=== PATIENT | female | born 1990 | race Caucasian/White ===

== ENCOUNTER 2016-06-07 13:10 | Emergency (ER) | payer OTHER, MEDICAID ==
[~2016-06-07] VITALS: Ht 170.2 cm; Wt 64.0 kg
[~2016-06-07 13:10] MED LIST: ALBU6.7H INH; BENZ100 PO; CIPR500T4 PO
[2016-06-07 13:14] VITALS: BP 121/87; PULSE 96; RESP 16; TEMP 97.7; O2SAT 96
[2016-06-07] MEDS ORDERED: SODIUM CHLOR 0.9% 1000 ML INJ 1,000 ML IV SCH (17:19)
--- NOTE | 2016-06-07 17:20 | PD ---
HPI Chief Complaint: Abdominal Pain Time Seen by Provider: 17:20 Travel History International Travel<30 days: No Contact w/Intl Traveler<30days: No Traveled to known affect area: No History of Present Illness HPI 26-year-old female presents to the emergency department for evaluation of epigastric abdominal pain for 2 days. Patient states that she has had intermittent cramping epigastric abdominal pain with occasional sharp shooting pain. States that she has had some intermittent nausea as well. States that she has had 2 episodes of nonbloody diarrhea. Denies any fever, chills, vomiting, chest pain, shortness of breath, cough or cold symptoms, dysuria, burning with urination, hematuria. States that she delivered her baby vaginally 05/31/16, has still had some intermittent spotting since the delivery. Denies any pelvic or vaginal pain. Prior abdominal surgeries include left fallopian tube removal secondary to ectopic. No other complaints. PFSH Past Medical History Cerebrovascular Accident: No Diabetes: No Diminished Hearing: No Musculoskeletal: Yes (SCOLIOSIS) Myocardial Infarction: No ?: Not : 3 Miscarriage: 2 Dilation and Curettage (D&C): Yes Past Surgical History Pacemaker: No Tonsillectomy: Yes Social History Alcohol Use: Yes Tobacco Use: Yes (1/2 ppd) Substance Use: No Allergies-Medications (Allergen,Severity, Reaction): Coded Allergies: No Known Allergies (Unverified , 12/25/13) Reported Meds & Prescriptions Reported Meds & Active Scripts Active Proventil Hfa (Albuterol Sulfate) 6.7 Gm Aero 2 Puff INH Q4 * SHAKE WELL BEFORE USE * Tessalon Perles (Benzonatate) 100 Mg Cap 100 Mg PO TID Cipro (Ciprofloxacin HCl) 500 Mg Tab 500 Mg PO BID 10 Days Review of Systems Except as stated in HPI: all other systems reviewed are Neg Physical Exam Narrative GENERAL: Well-nourished and well-developed pleasant patient in no acute distress who is nontoxic appearing. SKIN: Warm and dry. HEAD: Normocephalic and atraumatic. EYES: No injection, drainage, or hyphema noted. PERRLA. EOMI. ENT: No nasal drainage noted. Oropharynx is clear. NECK: Supple and the trachea is midline. CARDIOVASCULAR: Regular rate and rhythm. RESPIRATORY: Breath sounds are equal bilaterally with no accessory muscle use, wheezing, rhonchi, or crackles. GASTROINTESTINAL: Epigastric and left upper quadrant tenderness to palpation. Abdomen is soft and nondistended. MUSCULOSKELETAL: No obvious deformities, swelling, cyanosis, or ecchymosis is present throughout the upper and lower extremities. Patient has full range of motion without any signs of neurovascular compromise. BACK: Nontender without any obvious deformities, bony point tenderness, or crepitus noted throughout the thoracic and lumbar vertebrae. NEUROLOGICAL: Awake, alert, and oriented. Normal speech and gait. Cranial nerves are grossly intact. Data Data Last Documented VS Vital Signs Date Time Temp Pulse Resp B/P Pulse Ox O2 Delivery O2 Flow Rate FiO2 06/07/16 19:25 64 16 117/84 99 Room Air 06/07/16 13:14 97.7 Orders Complete Blood Count With Diff (06/07/16 17:19) Comprehensive Metabolic Panel (06/07/16 17:19) Lipase (06/07/16 17:19) Urinalysis - C+S If Indicated (06/07/16 17:19) Iv Access Insert/Monitor (06/07/16 17:19) Ecg Monitoring (06/07/16 17:19) Oximetry (06/07/16 17:19) Morphine Inj (Morphine Inj) (06/07/16 17:30) Ondansetron Inj (Zofran Inj) (06/07/16 17:30) Sodium Chlor 0.9% 1000 Ml Inj (Ns 1000 M (06/07/16 17:19) Sodium Chloride 0.9% Flush (Ns Flush) (06/07/16 17:30) Urine Culture (06/07/16 17:53) Potassium Cl 40 Meq/30 Ml Liq (Kcl 40 Me (06/07/16 19:30) Labs Laboratory Tests Test 06/07/16 17:53 White Blood Count 7.4 TH/MM3 Red Blood Count 4.00 MIL/MM3 Hemoglobin 10.7 GM/DL Hematocrit 32.7 % Mean Corpuscular Volume 81.6 FL Mean Corpuscular Hemoglobin 26.8 PG Mean Corpuscular Hemoglobin 32.8 % Concent Red Cell Distribution Width 14.2 % Platelet Count 281 TH/MM3 Mean Platelet Volume 7.9 FL Neutrophils (%) (Auto) 66.7 % Lymphocytes (%) (Auto) 22.4 % Monocytes (%) (Auto) 9.2 % Eosinophils (%) (Auto) 0.9 % Basophils (%) (Auto) 0.8 % Neutrophils # (Auto) 4.9 TH/MM3 Lymphocytes # (Auto) 1.6 TH/MM3 Monocytes # (Auto) 0.7 TH/MM3 Eosinophils # (Auto) 0.1 TH/MM3 Basophils # (Auto) 0.1 TH/MM3 CBC Comment DIFF FINAL Differential Comment Urine Color YELLOW Urine Turbidity CLEAR Urine pH 6.0 Urine Specific Pauline 1.030 Urine Protein 30 mg/dL Urine Glucose (UA) NEG mg/dL Urine Ketones 10 mg/dL Urine Occult Blood NEG Urine Nitrite NEG Urine Bilirubin NEG Urine Urobilinogen LESS THAN 2.0 MG/DL Urine Leukocyte Esterase MOD Urine RBC 6 /hpf Urine WBC 23 /hpf Urine Squamous Epithelial 3 /hpf Cells Urine Mucus FEW /lpf Microscopic Urinalysis Comment CULTURE INDICATED Sodium Level 143 MEQ/L Potassium Level 2.8 MEQ/L Chloride Level 108 MEQ/L Carbon Dioxide Level 20.0 MEQ/L Anion Gap 15 MEQ/L Blood Urea Nitrogen 6 MG/DL Creatinine 0.61 MG/DL Estimat Glomerular Filtration 121 ML/MIN Rate Random Glucose 78 MG/DL Calcium Level 8.2 MG/DL Total Bilirubin 0.3 MG/DL Aspartate Amino Transf 20 U/L (AST/SGOT) Alanine Aminotransferase 25 U/L (ALT/SGPT) Alkaline Phosphatase 119 U/L Total Protein 6.8 GM/DL Albumin 2.9 GM/DL Lipase 94 U/L [facility] Medical Decision Making Medical Screen Exam Complete: Yes Emergency Medical Condition: Yes Differential Diagnosis Gastritis versus pancreatitis versus cholecystitis versus colitis Narrative Course 26-year-old female presents to the emergency department for evaluation of epigastric abdominal pain for 2 days. Patient is afebrile, vital signs are stable. She does have some epigastric and left upper quadrant tenderness to palpation. She had an uncomplicated vaginal delivery 05/31/16. IV access is obtained, labs drawn and sent. Patient is given a liter fluid, 4 mg of her 14 and 4 mg of Zofran. CBC is unremarkable. CMP shows hypokalemia with potassium of 2.8. Otherwise unremarkable. Urinalysis shows 30 protein, 10 ketones, moderate leukocyte esterase, 6 red blood cells, 23 white blood cells, few mucus. Culture is pending. Patient reassessed and reports great improvement of symptoms. I discussed with the patient that she does have bacteria in her urine however I do not attribute this to the patient's epigastric pain. She may have gastritis or a viral gastroenteritis. Discussed supportive care and when to return to the emergency department. We'll place her on Keflex for her UTI. Advised follow-up with her PCP. Patient verbalizes understanding and agreement with treatment plan. I discussed the case with my attending physician Dr. Griffin who is aware of the patients history, physical examination findings, and treatment plan. Diagnosis Primary Impression: Epigastric abdominal pain Additional Impression: Urinary tract infection Qualified Code: N39.0 - Urinary tract infection with hematuria, site unspecified Referrals: Primary Care Physician Patient Instructions: General Instructions Additional Instructions: Take medications as prescribed with food and a full glass of water. Follow-up with your Primary Care Physician. Return to the ED for any acute worsening of symptoms. Med/Other Pt SpecificInfo: Prescription(s) given Scripts Cephalexin (Keflex)500 Mg Ifx509 Mg PO Q12H 7 Days Ref 0 Prov:Choco Griffin MD 06/07/16 Disposition: 01 DISCHARGE HOME Condition: Stable Kyleigh Damico Jun 07, 2016 17:20
[2016-06-07] MEDS ORDERED: ONDANSETRON HCL 4 MG/2 ML VIAL IVP ONE (17:30)
[2016-06-07] MEDS ORDERED: MORPHINE SULFATE 4 MG/ML INJ IV PUSH ONE (17:30)
[2016-06-07] MEDS ORDERED: SODIUM CHLORIDE 0.9% FLUSH 5 ML FLUSH IVF PRN (17:30)
[2016-06-07 18:00] VITALS: BP 122/72; PULSE 86; RESP 19; O2SAT 99
[2016-06-07 18:21] VITALS: O2SAT 98
[2016-06-07 18:21] LABS: AUTOMATED NEUTROPHIL # 4.9 TH/MM3 (1.8-7.7); BASOPHIL # 0.1 TH/MM3 (0-0.2); BASOPHIL % 0.8 % (0.0-2.0); EOSINOPHIL # 0.1 TH/MM3 (0-0.4); EOSINOPHIL % 0.9 % (0.0-4.0); HEMATOCRIT 32.7 % (35.0-46.0); HEMO FLAGS DIFF FINAL; LYMPH % 22.4 % (9.0-44.0); LYMPHOCYTE # 1.6 TH/MM3 (1.0-4.8); MEAN CELL VOLUME 81.6 FL (80.0-100.0); MEAN CORPUSCULAR HEMOGLOBIN 26.8 PG (27.0-34.0); MEAN CORPUSCULAR HGB CONC 32.8 % (32.0-36.0); MONO % 9.2 % (0.0-8.0); NEUT % 66.7 % (16.0-70.0); PLATELET COUNT 281 TH/MM3 (150-450); RED CELL DISTRIBUTION WIDTH 14.2 % (11.6-17.2); WHITE BLOOD COUNT 7.4 TH/MM3 (4.0-11.0)
[2016-06-07 18:42] LABS: BLOOD, URINE NEG (NEG); COMMENT (UR) CULTURE INDICATED; CULTURE IF INDICATED CULTURE INDICATED; GLUCOSE,URINE NEG (NEG); KETONE, URINE 10 mg/dL (NEG); MUCUS URINE FEW /lpf (OCC); NITRITE,URINE NEG (NEG); SQUAMOUS EPITHELIAL CELL URINE 3 /hpf (0-5); URINE COLOR YELLOW (YELLW/STRAW)
[2016-06-07 19:02] LABS: ALKALINE PHOSPHATASE 119 U/L (45-117); ALT (GPT) 25 U/L (10-53); ANION GAP 15 MEQ/L (5-15); AST (GOT) 20 U/L (15-37); BLOOD UREA NITROGEN 6 MG/DL (7-18); CHLORIDE 108 MEQ/L (98-107); GLOMERULAR FILTRATION RATE 121 ML/MIN (>89); SODIUM (NA) 143 MEQ/L (136-145); TOTAL BILIRUBIN ADULT 0.3 MG/DL (0.2-1.0)
[2016-06-07 19:07] LABS: POTASSIUM 2.8 MEQ/L (3.5-5.1)
[2016-06-07 19:25] VITALS: BP 117/84; PULSE 64; RESP 16; O2SAT 99
[2016-06-07] MEDS ORDERED: POTASSIUM CL 40 MEQ/30 ML LIQ UDC PO ONE (19:30)
[2016-06-07] MEDS ORDERED: CEPH-460 PO (19:37)
== END 2016-06-07 20:01 | disposition home or self-care (01) ==
LOC: NEPC 13:10
DX: R10.13 Epigastric pain (principal); N39.0 Urinary tract infection, site not specified; R11.0 Nausea; R31.9 Hematuria, unspecified; F17.210 Nicotine dependence, cigarettes, uncomplicated
CPT/HCPCS: 80053; 81001; 83690; 85025; 87086; 96361; 96374; 96375; 99284; J2270; J2405; J7030